=== PATIENT | female | born 1955 | race Two or more races ===

== ENCOUNTER 2022-01-04 23:56 | Emergency (ER) | payer MEDICAID, OTHER ==
[~2022-01-04] VITALS: Ht 162.6 cm; Wt 59.0 kg
[2022-01-05] MEDS ORDERED: ASPIRIN 81MG TABLET PO ONE (01:00)
[2022-01-05 01:32] LABS: BASOPHILS % 0.3 % (0.0-2.0); EOSINOPHILS % 1.3 % (0.0-5.0); HEMATOCRIT. 40.9 % (36.0-48.0); HEMOGLOBIN. 14.3 g/dL (12.0-16.0); LYMPHOCYTES % 16.6 % (20.0-50.0); MEAN CORPUSCULAR HEMOGLOBIN 30.2 pg (28.0-32.0); MEAN CORPUSCULAR VOLUME 86.5 fL (81.0-99.0); MEAN PLATELET VOLUME 8.5 fl (7.4-10.4); MONOCYTES % 4.6 % (2.0-8.0); NEUTROPHILS % 77.2 % (40.0-76.0); PLATELET 195 x1000/uL (130-400); RED BLOOD CELL COUNT 4.73 mill/uL (4.2-5.4); RED CELL DISTRIBUTION WIDTH 13.1 % (11.6-14.6)
[2022-01-05 01:43] LABS: CHLORIDE 107 mEq/L (98-107)
[2022-01-05 01:54] LABS: ETHANOL BLOOD < 10 mg/dL
[2022-01-05] MEDS ORDERED: HYDROCODONE/ACETAMINOPHEN 10/325MG TABLET PO ONE (02:30)
[2022-01-05 04:01] LABS: CLARITY URINE CLEAR (CLEAR); COLOR URINE YELLOW (YELLOW); KETONES URINE NEGATIVE (NEGATIVE); LEUKOCYTE ESTERASE URINE 1+ (NEGATIVE); NITRITE URINE NEGATIVE (NEGATIVE); OCCULT BLOOD URINE NEGATIVE (NEGATIVE); PROTEIN URINE NEGATIVE (NEGATIVE); UROBILINOGEN URINE 0.2 E.U./dL (0.2-1.0)
[2022-01-05 04:21] LABS: *AMPHETAMINES SCREEN URINE NEGATIVE (NEGATIVE); *BARBITURATES SCREEN URINE NEGATIVE (NEGATIVE); *BENZODIAZEPINES SCREEN URINE NEGATIVE (NEGATIVE); *COCAINE SCREEN URINE NEGATIVE (NEGATIVE); CANNABINOID URINE SCREEN NEGATIVE (NEGATIVE); METHADONE URINE SCREEN NEGATIVE (NEGATIVE); OPIATES URINE SCREEN NEGATIVE (NEGATIVE); PHENCYCLIDINE URINE SCREEN NEGATIVE (NEGATIVE)
[2022-01-05] MEDS ORDERED: MECLIZINE 25MG TABLET PO SCH (04:30)
[2022-01-05] MEDS ORDERED: MECL-159 MT (04:32)
[2022-01-05] MEDS ORDERED: ONDANSETRON 4MG ODT PO SCH (04:45)
[2022-01-05 04:55] VITALS: BP 111/57
== END 2022-01-05 05:00 | disposition home or self-care (01) ==
LOC: ER 23:56
DX: R55 Syncope and collapse (principal); R42 Dizziness and giddiness; Z86.74 Personal history of sudden cardiac arrest
CPT/HCPCS: 36415; 70450; 71045; 80053; 80305; 80320; 81003; 82962; 83880; 84484; 85025; 93005; 99285; Q0162; J8597; G0480

== ENCOUNTER 2022-01-05 19:38 | Emergency (ER) | payer MEDICAID ==
[~2022-01-05] VITALS: Ht 152.4 cm; Wt 68.3 kg
[~2022-01-05 19:38] MED LIST: MECL-159 MT
[2022-01-05] MEDS ORDERED: ONDANSETRON HCL 4MG/2ML INJ IV STA (22:07)
[2022-01-05] MEDS ORDERED: ASPIRIN 81MG TABLET PO ONE (22:15)
[2022-01-05] MEDS ORDERED: SODIUM CHLORIDE 0.9% 1,000 ML IV ONE (22:15)
[2022-01-05] MEDS ORDERED: NITROGLYCERIN 0.4MG TABLET SL SL PRN (22:15)
[2022-01-05 22:36] LABS: BASOPHILS % 0.2 % (0.0-2.0); EOSINOPHILS % 0.4 % (0.0-5.0); HEMATOCRIT. 41.5 % (36.0-48.0); HEMOGLOBIN. 14.1 g/dL (12.0-16.0); LYMPHOCYTES % 15.3 % (20.0-50.0); MEAN CORPUSCULAR HEMOGLOBIN 30.1 pg (28.0-32.0); MEAN CORPUSCULAR VOLUME 88.4 fL (81.0-99.0); MEAN PLATELET VOLUME 8.5 fl (7.4-10.4); MONOCYTES % 3.6 % (2.0-8.0); NEUTROPHILS % 80.5 % (40.0-76.0); PLATELET 203 x1000/uL (130-400); RED BLOOD CELL COUNT 4.69 mill/uL (4.2-5.4); RED CELL DISTRIBUTION WIDTH 13.3 % (11.6-14.6)
[2022-01-05 22:42] LABS: CHLORIDE 109 mEq/L (98-107)
[2022-01-05 22:46] LABS: D-DIMER 1.91 mg/L FEU (<0.50); PARTIAL THROMBOPLASTIN TIME 23.3 sec (23.4-31.0); PROTHROMBIN TIME 10.3 sec (9.6-11.0)
[2022-01-05] MEDS ORDERED: ENOXAPARIN 80MG/0.8ML SYR SUBCUT ONE (23:45)
[2022-01-06 02:30] VITALS: BP 118/66
== END 2022-01-06 03:07 | disposition short-term general hospital (02) ==
LOC: ER 19:38
DX: R07.89 Other chest pain (principal); R42 Dizziness and giddiness; R55 Syncope and collapse
CPT/HCPCS: 36415; 71045; 80053; 83690; 83880; 84484; 85025; 85379; 85610; 85730; 93005; 96361; 96372; 96374; 99285; J1650; J2405; J7030

== ENCOUNTER 2022-02-14 20:55 | Emergency (ER) | payer OTHER ==
[~2022-02-14] VITALS: Ht 162.6 cm; Wt 80.0 kg
[2022-02-14 21:28] VITALS: BP 115/76
[2022-02-15 00:28] LABS: HEMATOCRIT. 40.9 % (36.0-48.0); HEMOGLOBIN. 14.3 g/dL (12.0-16.0); MEAN CORPUSCULAR HEMOGLOBIN 30.2 pg (28.0-32.0); MEAN CORPUSCULAR VOLUME 86.4 fL (81.0-99.0); MEAN PLATELET VOLUME 8.4 fl (7.4-10.4); PLATELET 225 x1000/uL (130-400); RED BLOOD CELL COUNT 4.73 mill/uL (4.2-5.4); RED CELL DISTRIBUTION WIDTH 13.7 % (11.6-14.6)
[2022-02-15 00:58] LABS: CHLORIDE 104 mEq/L (98-107)
[2022-02-15] MEDS ORDERED: MECL-159 MT (02:23)
[2022-02-15 06:04] LABS: PLATELET ESTIMATE NORMAL
== END 2022-02-15 04:57 | disposition home or self-care (01) ==
LOC: ER 20:55
DX: R53.1 Weakness (principal); R11.2 Nausea with vomiting, unspecified
CPT/HCPCS: 36415; 71045; 80053; 84484; 85025; 93005; 99285

== ENCOUNTER 2022-04-24 18:48 | Emergency (ER) | payer OTHER | END 2022-04-24 19:54 | disposition left against medical advice (07) | LOC: ER 18:48 | DX: Z53.21 Procedure and treatment not carried out due to patient leaving prior to being seen by health care provider (principal) ==